=== PATIENT | male | born 1960 | race African-American/Black ===

== ENCOUNTER 2024-07-10 16:36 | Inpatient (IN) | payer MEDICAID, OTHER ==
[~2024-07-10] VITALS: Ht 154.2 cm; Wt 39.0 kg
[~2024-07-10 16:36] MED LIST: LEVO750T68 MT; LINE600T14 MT
[2024-07-10 20:07] LABS: CHLORIDE 101 mEq/L (98-107); POTASSIUM 4.6 mEq/L (3.5-5.1); SODIUM 133 mEq/L (136-145)
[2024-07-10 20:08] LABS: CARBON DIOXIDE 30 mEq/L (21-32)
[2024-07-10 20:09] LABS: INR 1.1; PROTHROMBIN TIME 12.3 sec (9.6-11.0)
[2024-07-10 20:10] LABS: BASOPHILS % 0.2 % (0.0-2.0); EOSINOPHILS % 0.5 % (0.0-5.0); HEMATOCRIT. 27.5 % (42.0-52.0); HEMOGLOBIN. 8.7 g/dL (14.0-18.0); LYMPHOCYTES % 8.8 % (20.0-50.0); MEAN CORPUSCULAR HEMOGLOBIN 23.1 pg (28.0-32.0); MEAN CORPUSCULAR HGB CONC 31.8 g/dL (31.0-37.0); MEAN CORPUSCULAR VOLUME 72.8 fL (80.0-94.0); MEAN PLATELET VOLUME 7.1 fl (7.4-10.4); MONOCYTES % 5.4 % (2.0-8.0); NEUTROPHILS % 85.1 % (40.0-76.0); PLATELET 562 x1000/uL (130-400); RED BLOOD CELL COUNT 3.78 mill/uL (4.7-6.1); RED CELL DISTRIBUTION WIDTH 26.7 % (11.6-14.6); WHITE BLOOD COUNT 24.2 x1000/uL (4.5-11.0)
[2024-07-10 20:13] LABS: CREATININE 0.8 mg/dL (0.6-1.3); GLUCOSE 92 mg/dL (70-105); UREA NITROGEN BLOOD 11 mg/dL (9-23)
[2024-07-10 20:15] LABS: ALANINE AMINOTRANSFERASE < 7 IU/L (10-49); BILIRUBIN DIRECT 0.2 mg/dL (<=3.0); BILIRUBIN TOTAL 0.7 mg/dL (0.1-1.0)
[2024-07-10 20:16] LABS: PROTEIN TOTAL 9.3 g/dL (6.0-8.3)
[2024-07-10 20:25] LABS: DIFFERENTIAL COMMENT 1
[2024-07-10 20:52] LABS: ASPARTATE AMINOTRANSFERASE < 8 IU/L (<34); CALCIUM 13.7 mg/dL (8.7-10.4)
[2024-07-10] MEDS: SODIUM CHLORIDE 0.9% (SEPSIS BOLUS) IV ONE (21:58)
[2024-07-10] MEDS: PIPERACILLIN/TAZO 3.375G/50ML 50 ML IV STA (22:02)
[2024-07-10 23:30] VITALS: BP 139/73; PULSE 79; RESP 19; TEMP 36.696
[2024-07-11] VITALS: BP 100/60; PULSE 87; RESP 18; TEMP 36.55848; O2SAT 100
[2024-07-11] MEDS ORDERED: VANCOMYCIN 1.5GM PMX (XELLIA) 300 ML IV NR (00:45)
[2024-07-11] MEDS: VANCOMYCIN 1.5GM/250ML IV NR (01:15)
[2024-07-11 04:00] VITALS: BP 100/59; PULSE 86; RESP 19; TEMP 36.28068; O2SAT 99
[2024-07-11] MEDS: PIPERACILLIN/TAZO 3.375G/50ML 50 ML IV SCH (05:27)
[2024-07-11] MEDS: ACETAMINOPHEN 650MG/20.3ML UDC PO PRN (06:04)
[2024-07-11 08:00] VITALS: BP 81/47; PULSE 17; RESP 19; TEMP 36.3918; O2SAT 98
[2024-07-11] MEDS: VANCOMYCIN 750MG/150ML (BAXTER) IV SCH ×2 (10:40→20:58)
[2024-07-11 12:00] VITALS: PULSE 85; RESP 18
[2024-07-11] MEDS ORDERED: LIDOCAINE HCL/EPINEPHRINE 1%-EPI 1:100,000 20ML VIAL INFIL NR (15:30)
[2024-07-11 16:00] VITALS: BP 97/57; PULSE 70; RESP 17; TEMP 36.55848; O2SAT 100
[2024-07-11 17:13] LABS: BASOPHILS % 0.2 % (0.0-2.0); EOSINOPHILS % 1.7 % (0.0-5.0); HEMOGLOBIN. 8.2 g/dL (14.0-18.0); LYMPHOCYTES % 7.3 % (20.0-50.0); MEAN CORPUSCULAR HEMOGLOBIN 21.9 pg (28.0-32.0); MEAN CORPUSCULAR HGB CONC 29.2 g/dL (31.0-37.0); MEAN CORPUSCULAR VOLUME 74.8 fL (80.0-94.0); MEAN PLATELET VOLUME 7.1 fl (7.4-10.4); MONOCYTES % 4.8 % (2.0-8.0); PLATELET 515 x1000/uL (130-400); RED BLOOD CELL COUNT 3.74 mill/uL (4.7-6.1); RED CELL DISTRIBUTION WIDTH 25.8 % (11.6-14.6); WHITE BLOOD COUNT 20.8 x1000/uL (4.5-11.0)
[2024-07-11 17:14] LABS: DIFFERENTIAL COMMENT 1
[2024-07-11 17:21] LABS: CHLORIDE 107 mEq/L (98-107); POTASSIUM 4.9 mEq/L (3.5-5.1); SODIUM 137 mEq/L (136-145)
[2024-07-11 17:23] LABS: CALCIUM 12.1 mg/dL (8.7-10.4); CARBON DIOXIDE 27 mEq/L (21-32)
[2024-07-11 17:27] LABS: CREATININE 0.7 mg/dL (0.6-1.3)
[2024-07-11 17:28] LABS: GLUCOSE 89 mg/dL (70-105); UREA NITROGEN BLOOD 11 mg/dL (9-23)
[2024-07-11 20:00] VITALS: BP 100/66; PULSE 70; RESP 20; TEMP 36.6696; O2SAT 98
[2024-07-11] MEDS: SODIUM HYPOCHLORITE 0.125% 473ML SOLUTION TOP SCH (21:05)
[2024-07-12] VITALS: BP 115/66; PULSE 80; RESP 18; TEMP 36.6696; O2SAT 97
[2024-07-12 04:00] VITALS: BP 99/59; PULSE 70; RESP 20; TEMP 37.00296; O2SAT 98
[2024-07-12 09:42] LABS: CHLORIDE 105 mEq/L (98-107); POTASSIUM 4.6 mEq/L (3.5-5.1); SODIUM 135 mEq/L (136-145)
[2024-07-12 09:43] LABS: CALCIUM 12.4 mg/dL (8.7-10.4); CARBON DIOXIDE 27 mEq/L (21-32)
[2024-07-12 09:43] LABS: BASOPHILS % 0.2 % (0.0-2.0); EOSINOPHILS % 0.6 % (0.0-5.0); HEMATOCRIT. 27.7 % (42.0-52.0); HEMOGLOBIN. 8.4 g/dL (14.0-18.0); LYMPHOCYTES % 8.2 % (20.0-50.0); MEAN CORPUSCULAR HEMOGLOBIN 22.8 pg (28.0-32.0); MEAN CORPUSCULAR HGB CONC 30.4 g/dL (31.0-37.0); MEAN CORPUSCULAR VOLUME 75.2 fL (80.0-94.0); MEAN PLATELET VOLUME 7.4 fl (7.4-10.4); MONOCYTES % 4.7 % (2.0-8.0); NEUTROPHILS % 86.3 % (40.0-76.0); PLATELET 524 x1000/uL (130-400); RED BLOOD CELL COUNT 3.69 mill/uL (4.7-6.1); RED CELL DISTRIBUTION WIDTH 25.8 % (11.6-14.6); WHITE BLOOD COUNT 21.5 x1000/uL (4.5-11.0)
[2024-07-12 09:48] LABS: CREATININE 0.7 mg/dL (0.6-1.3); GLUCOSE 73 mg/dL (70-105); UREA NITROGEN BLOOD 12 mg/dL (9-23)
[2024-07-12 10:00] LABS: DIFFERENTIAL COMMENT 1
[2024-07-12 10:01] LABS: ADD RBC MORPHOLOGY YES
[2024-07-12 12:00] VITALS: BP 95/59; PULSE 60; RESP 20; TEMP 36.72516; O2SAT 97
[2024-07-12] MEDS: SODIUM CHLORIDE 0.9% 1,000 ML IV SCH (15:28)
[2024-07-12 16:00] VITALS: BP 94/53; PULSE 76; RESP 20; TEMP 36.72516; O2SAT 9
[2024-07-12] MEDS: PAMIDRONATE DISODIUM IV NR (16:34)
[2024-07-12] MEDS: SODIUM CHLORIDE 0.9% IV NR (16:34)
[2024-07-12 20:00] VITALS: BP 100/72; PULSE 90; RESP 20; TEMP 37.00296; O2SAT 97
[2024-07-12 22:12] LABS: HYPOCHROMASIA 1+; MICROCYTOSIS 1+; PLATELET ESTIMATE INCREASED
[2024-07-13] VITALS: BP 99/62; PULSE 72; RESP 18; TEMP 36.6696; O2SAT 98
[2024-07-13 04:00] VITALS: BP 99/60; PULSE 103; RESP 20; TEMP 37.00296; O2SAT 98
[2024-07-13] MEDS: VANCOMYCIN 500MG PREMIX 100 ML IV SCH (04:27)
[2024-07-13 08:00] VITALS: BP 94/61; PULSE 89; RESP 18; TEMP 36.44736; O2SAT 97
[2024-07-13 12:00] VITALS: BP 89/51; PULSE 100; RESP 17; TEMP 36.50292; O2SAT 98
[2024-07-13] MEDS: MEROPENEM 1G/100ML 100 ML IV SCH (15:40)
[2024-07-13 16:00] VITALS: BP 90/52; PULSE 72; RESP 18; TEMP 36.6696; O2SAT 97
[2024-07-13 20:00] VITALS: BP 92/48; PULSE 101; RESP 18; TEMP 36.55848; O2SAT 97
[2024-07-13] MEDS ORDERED: IOHEXOL-350 100 ML BOTTLE ONE (23:12)
[2024-07-14] VITALS: BP 97/48; PULSE 91; RESP 18; TEMP 36.3918; O2SAT 98
[2024-07-14 04:00] VITALS: BP 141/96; PULSE 91; RESP 18; TEMP 36.50292; O2SAT 97
[2024-07-14] MEDS: MEROPENEM 1GM/50ML DUPLEX 50 ML IV SCH (05:47)
[2024-07-14 08:00] VITALS: BP 97/58; PULSE 92; RESP 16; TEMP 36.6696; O2SAT 97
[2024-07-14] MEDS: VANCOMYCIN 500MG PREMIX 100 ML IV SCH (10:12)
[2024-07-14 12:00] VITALS: BP 99/55; PULSE 95; RESP 16; TEMP 36.33624; O2SAT 98
[2024-07-14 16:00] VITALS: BP 90/56; PULSE 110; RESP 18; TEMP 37.2252; O2SAT 97
[2024-07-14 20:00] VITALS: BP 90/50; PULSE 111; RESP 18; TEMP 36.44736; O2SAT 94
[2024-07-15] VITALS: BP 98/50; PULSE 101; RESP 20; TEMP 36.28068; O2SAT 94
[2024-07-15 04:00] VITALS: BP 90/50; PULSE 95; RESP 17; TEMP 36.00288; O2SAT 93
[2024-07-15 08:00] VITALS: BP 88/49; PULSE 95; RESP 18; TEMP 36.50292; O2SAT 99
[2024-07-15] MEDS: MIDODRINE HCL 5MG TABLET PO SCH (10:02)
[2024-07-15] MEDS: SODIUM CHLORIDE 0.9% 500 ML IV ONE (10:03)
[2024-07-15 12:00] VITALS: BP 91/48; PULSE 89; RESP 18; TEMP 36.55848; O2SAT 98
[2024-07-15] MEDS: HYDROCODONE/ACETAMINOPHEN 5/325MG TABLET PO PRN (12:49)
[2024-07-15] MEDS ORDERED: NALOXONE HCL 0.4MG/ML VIAL IV PRN (15:30)
[2024-07-15 16:00] VITALS: BP 90/50; PULSE 74; RESP 16; TEMP 36.05844; O2SAT 97
[2024-07-15 20:00] VITALS: BP 86/48; PULSE 84; RESP 18; TEMP 37.05852; O2SAT 97
[2024-07-16] VITALS: BP 90/51; PULSE 91; RESP 18; TEMP 36.6696; O2SAT 97
[2024-07-16 04:00] VITALS: BP 86/49; PULSE 93; RESP 18; TEMP 36.9474; O2SAT 97
[2024-07-16 07:38] LABS: CARBON DIOXIDE 22 mEq/L (21-32); CHLORIDE 105 mEq/L (98-107); SODIUM 132 mEq/L (136-145)
[2024-07-16 07:39] LABS: CALCIUM 8.7 mg/dL (8.7-10.4)
[2024-07-16 07:44] LABS: CREATININE 0.6 mg/dL (0.6-1.3); GLUCOSE 88 mg/dL (70-105); UREA NITROGEN BLOOD 12 mg/dL (9-23)
[2024-07-16 08:00] VITALS: BP 90/50; PULSE 91; RESP 19; TEMP 36.72516; O2SAT 97
[2024-07-16 12:00] VITALS: BP 93/45; PULSE 89; RESP 18; TEMP 36.44736; O2SAT 97
[2024-07-16] MEDS ORDERED: ONDANSETRON HCL 4MG/2ML INJ IV PRN (15:50)
[2024-07-16 16:00] VITALS: BP 94/48; PULSE 94; RESP 18; TEMP 37.05852; O2SAT 97
[2024-07-16 20:00] VITALS: BP 82/44; PULSE 81; RESP 18; TEMP 36.22512; O2SAT 97
[2024-07-17 04:00] VITALS: BP 94/53; PULSE 94; RESP 18; TEMP 36.114; O2SAT 98
[2024-07-17 08:00] VITALS: BP 91/44; PULSE 88; RESP 20; TEMP 36.28068; O2SAT 98
[2024-07-17 12:00] VITALS: BP 95/49; PULSE 94; RESP 20; TEMP 36.16956; O2SAT 98
[2024-07-17 16:00] VITALS: BP 99/55; PULSE 89; RESP 20; TEMP 36.22512; O2SAT 100
[2024-07-17 20:00] VITALS: BP 94/51; PULSE 89; RESP 17; TEMP 36.28068; O2SAT 95
[2024-07-18] VITALS: BP 119/53; PULSE 95; RESP 16; TEMP 36.05844; O2SAT 96
[2024-07-18 04:00] VITALS: BP 98/56; PULSE 96; RESP 15; TEMP 36.61404; O2SAT 98
[2024-07-18 08:00] VITALS: BP 100/46; PULSE 99; RESP 20; TEMP 35.8362; O2SAT 100
[2024-07-18] MEDS: MULTIVITAMINS,THER W-MINERALS TABLET PO SCH (08:30)
[2024-07-18] MEDS ORDERED: MULTIVITAMINS,THER W-MINERALS TABLET PO SCH (09:00)
[2024-07-18] MEDS ORDERED: MIDO10TA3 MT (10:12)
[2024-07-18 12:00] VITALS: BP 101/55; PULSE 93; RESP 20; TEMP 36.00288; O2SAT 100
[2024-07-18 15:54] VITALS: BP 101/55; PULSE 93; TEMP 96.8; O2SAT 100
[2024-07-18 16:00] VITALS: BP 93/42; PULSE 97; RESP 20; TEMP 37.89192; O2SAT 100
== END 2024-07-18 18:30 | disposition home health service (06) | DRG 720 ==
LOC: ER 16:36 → 8WST 21:13 → EDBEDREQ 21:15 → 6WST 07-15 15:11 → 4WST 07-18 02:20
PROVIDERS: ADMIT Internal Medicine; ATTEND Internal Medicine
DX: A41.9 Sepsis, unspecified organism (principal); L89.159 Pressure ulcer of sacral region, unspecified stage; E87.1 Hypo-osmolality and hyponatremia; M46.28 Osteomyelitis of vertebra, sacral and sacrococcygeal region; D64.9 Anemia, unspecified; S31.819A Unspecified open wound of right buttock, initial encounter; J45.909 Unspecified asthma, uncomplicated; L73.2 Hidradenitis suppurativa; B96.5 Pseudomonas (aeruginosa) (mallei) (pseudomallei) as the cause of diseases classified elsewhere; D50.9 Iron deficiency anemia, unspecified; B96.20 Unspecified Escherichia coli [E. coli] as the cause of diseases classified elsewhere; X58.XXXA Exposure to other specified factors, initial encounter; R63.4 Abnormal weight loss; D75.839 Thrombocytosis, unspecified; E83.52 Hypercalcemia; Z91.199 Patient's noncompliance with other medical treatment and regimen due to unspecified reason; Z59.01 Sheltered homelessness; Z68.1 Body mass index [BMI] 19.9 or less, adult; Y93.89 Activity, other specified; Y92.89 Other specified places as the place of occurrence of the external cause; Y99.8 Other external cause status
CPT/HCPCS: 36415; 71260; 74177; 80048; 80076; 80202; 83605; 83970; 84145; 85025; 99291; A4606; C1893; J2004; J2185; J2430; J2543; J3370; J7030; J7040; Q9967

== ENCOUNTER 2024-09-18 13:30 | Inpatient (IN) | payer MEDICAID, OTHER ==
[2024-09-18] VITALS (14 sets, daily range): BP systolic 111–130; BP diastolic 80–96; PULSE 80–96; RESP 16–22; TEMP 34.9; O2SAT 99–100
[~2024-09-18] VITALS: Ht 175.3 cm; Wt 56.9 kg
[~2024-09-18 13:30] MED LIST changes: +CLIN-194 MT; +DOXY150T8 MT; +LEVO-65 MT; -LEVO750T68 MT; -LINE600T14 MT; +MAGN200T5 MT
[2024-09-18] MEDS: VANCOMYCIN 1G PREMIX 200 ML IV ONE (14:30)
[2024-09-18] MEDS: NOREPINEPHRINE 8MG/250ML PMX 250 ML IV STA (14:45)
[2024-09-18] MEDS: PIPERACILLIN/TAZO 3.375G/50ML 50 ML IV ONE (14:49)
[2024-09-18 14:54] LABS: BASOPHILS % 0.2 % (0.0-2.0); DIFFERENTIAL COMMENT 0; EOSINOPHILS % 0.2 % (0.0-5.0); HEMATOCRIT. 21.4 % (42.0-52.0); LYMPHOCYTES % 12.9 % (20.0-50.0); MEAN CORPUSCULAR HEMOGLOBIN 23.3 pg (28.0-32.0); MEAN CORPUSCULAR HGB CONC 28.2 g/dL (31.0-37.0); MEAN CORPUSCULAR VOLUME 82.4 fL (80.0-94.0); MEAN PLATELET VOLUME 7.2 fl (7.4-10.4); NEUTROPHILS % 84.7 % (40.0-76.0); PLATELET 202 x1000/uL (130-400); RED CELL DISTRIBUTION WIDTH 19.4 % (11.6-14.6)
[2024-09-18] MEDS: SODIUM CHLORIDE 0.9% (SEPSIS BOLUS) IV ONE (14:54)
[2024-09-18 15:02] LABS: BG BASE EXCESS -2.4 mmol/L (-2.0-3.0); BG CARBOXYHEMOGLOBIN 0.8 % (0.5-1.5); BG DEOXYHEMOGLOBIN 0.3 % (0.0-5.0); BG FRACTION INSPIRED OXYGEN 100; BG HCO3 ACT 22.8 mmol/L (21.0-28.0); BG METHEMOGLOBIN 0.2 % (0.5-1.5); BG OXYGEN SATURATION 99.7 % (94.0-98.0); BG OXYHEMOGLOBIN 98.7 % (94.0-98.0); BG PH 7.363 (7.350-7.450); BG PO2 551.2 mmHg (83.0-108.0); BG SAMPLE SITE RIGHT RADIAL; BG TOTAL HEMOGLOBIN 7.3 g/dL (13.5-17.5); BG VENT MODE VENT - AC
[2024-09-18 15:11] LABS: INR 1.6; PROTHROMBIN TIME 16.8 sec (9.6-11.0)
[2024-09-18 15:15] LABS: HEMOGLOBIN. 6.1 g/dL (14.0-18.0)
[2024-09-18 15:17] LABS: CHLORIDE 107 mEq/L (98-107); POTASSIUM 3.6 mEq/L (3.5-5.1); SODIUM 145 mEq/L (136-145)
[2024-09-18 15:18] LABS: CARBON DIOXIDE 21 mEq/L (21-32)
[2024-09-18 15:24] LABS: TROPONIN I HIGH SENSITIVITY 29 ng/L (3.0-53); UREA NITROGEN BLOOD 38 mg/dL (9-23)
[2024-09-18 15:25] LABS: ALANINE AMINOTRANSFERASE 10 IU/L (10-49); ALBUMIN 1.8 g/dL (3.2-4.8); ASPARTATE AMINOTRANSFERASE 23 IU/L (<34)
[2024-09-18 15:26] LABS: BILIRUBIN DIRECT 0.2 mg/dL (<=3.0); BILIRUBIN TOTAL 0.5 mg/dL (0.1-1.0); PROTEIN TOTAL 6.1 g/dL (6.0-8.3)
[2024-09-18 15:27] LABS: GLUCOSE 356 mg/dL (70-105)
[2024-09-18 15:28] LABS: ETHANOL BLOOD < 10 mg/dL (<10)
[2024-09-18 15:30] LABS: LACTIC ACID 8.6 mmol/L (0.4-2.0)
[2024-09-18] MEDS: FENTANYL 2500MCG/250ML PMX 250 ML IV ONE ×2 (16:33→22:12)
[2024-09-18] MEDS: PROPOFOL 10MG/ML 100ML 100 ML IV SCH (16:45)
[2024-09-18 16:47] LABS: INFLUENZA TYPE A Presumptive Negative (Pres. Neg.); INFLUENZA TYPE B Presumptive Negative (Pres. Neg.)
[2024-09-18 18:08] LABS: CLARITY URINE CLEAR (CLEAR); COLOR URINE YELLOW (YELLOW); GLUCOSE URINE NEGATIVE (NEGATIVE); KETONES URINE NEGATIVE (NEGATIVE); LEUKOCYTE ESTERASE URINE TRACE (NEGATIVE); NITRITE URINE NEGATIVE (NEGATIVE); OCCULT BLOOD URINE 2+ (NEGATIVE); PROTEIN URINE 1+ (NEGATIVE); SPECIFIC GRAVITY URINE 1.016 (1.005-1.030); UROBILINOGEN URINE 0.2 E.U./dL (0.2-1.0)
[2024-09-18 19:19] LABS: BACTERIA URINE 1+; SQUAMOUS EPITHELIAL CELL URINE FEW /lpf (RARE/1+); WBC URINE 0-2 /hpf (0-2)
[2024-09-18] MEDS ORDERED: NOREPINEPHRINE 32 MG in DEXT 5% WATER 218 ML IV PRN (19:50)
[2024-09-18] MEDS: NOREPINEPHRINE 32 MG in DEXT 5% WATER 218 ML IV PRN (20:05)
[2024-09-18] MEDS ORDERED: IPRATROPIUM/ALBUTEROL 0.5-3(2.5)MG/3ML NEB HHN PRN (21:00)
[2024-09-18] MEDS: PIPERACILLIN/TAZO 3.375G/50ML 50 ML IV SCH (21:34)
[2024-09-19] VITALS (104 sets, daily range): BP systolic 66–121; BP diastolic 50–89; PULSE 67–116; RESP 12–28; TEMP 35.3–36.1; O2SAT 0–100
[2024-09-19 00:42] LABS: HEMATOCRIT 35.1 % (42.0-52.0); HEMOGLOBIN 10.4 g/dL (14.0-18.0)
[2024-09-19] MEDS: SODIUM CHLORIDE 0.9% 1,000 ML IV SCH (01:39)
[2024-09-19 05:05] LABS: HEMATOCRIT. 32.8 % (42.0-52.0); MEAN CORPUSCULAR HEMOGLOBIN 24.9 pg (28.0-32.0); MEAN CORPUSCULAR HGB CONC 30.5 g/dL (31.0-37.0); MEAN CORPUSCULAR VOLUME 81.7 fL (80.0-94.0); MEAN PLATELET VOLUME 7.3 fl (7.4-10.4); PLATELET 237 x1000/uL (130-400); RED BLOOD CELL COUNT 4.01 mill/uL (4.7-6.1); RED CELL DISTRIBUTION WIDTH 18.3 % (11.6-14.6); WHITE BLOOD COUNT 31.4 x1000/uL (4.5-11.0)
[2024-09-19] MEDS ORDERED: PROPOFOL 10MG/ML 100ML 100 ML IV PRN (05:30)
[2024-09-19] MEDS: NOREPINEPHRINE 32 MG in DEXT 5% WATER 218 ML IV PRN (06:01)
[2024-09-19 06:19] LABS: DIFFERENTIAL COMMENT 1
[2024-09-19] MEDS ORDERED: ACETAMINOPHEN 325MG TABLET PO PRN (07:15)
[2024-09-19] MEDS ORDERED: CLONIDINE 0.1MG TABLET PO PRN (07:15)
[2024-09-19] MEDS ORDERED: ONDANSETRON HCL 4MG/2ML INJ IV PRN (07:15)
[2024-09-19] MEDS ORDERED: DOCUSATE SODIUM 100MG CAPSULE PO PRN (07:15)
[2024-09-19] MEDS: PHYTONADIONE 10MG/ML INJ SUBCUT NR (08:27)
[2024-09-19] MEDS: PANTOPRAZOLE SODIUM 40 MG/VIAL IV SCH (08:27)
[2024-09-19] MEDS: SODIUM CHLORIDE 0.45% 1,000 ML IV SCH (08:34)
[2024-09-19 08:47] LABS: *AMPHETAMINES SCREEN URINE NEGATIVE (NEGATIVE); *BARBITURATES SCREEN URINE NEGATIVE (NEGATIVE); *BENZODIAZEPINES SCREEN URINE NEGATIVE (NEGATIVE); *COCAINE SCREEN URINE NEGATIVE (NEGATIVE); CANNABINOID URINE SCREEN NEGATIVE (NEGATIVE); ECSTASY MDMA SCREEN URINE NEGATIVE (NEGATIVE); METHADONE URINE SCREEN NEGATIVE (NEGATIVE); OPIATES URINE SCREEN NEGATIVE (NEGATIVE); PHENCYCLIDINE URINE SCREEN NEGATIVE (NEGATIVE)
[2024-09-19 09:33] LABS: BG BASE EXCESS -4.6 mmol/L (-2.0-3.0); BG CARBOXYHEMOGLOBIN 1.2 % (0.5-1.5); BG DEOXYHEMOGLOBIN 0.6 % (0.0-5.0); BG FRACTION INSPIRED OXYGEN 40; BG METHEMOGLOBIN 0.3 % (0.5-1.5); BG OXYGEN SATURATION 99.4 % (94.0-98.0); BG OXYHEMOGLOBIN 97.9 % (94.0-98.0); BG PCO2 40.3 mmHg (35.0-48.0); BG PH 7.334 (7.350-7.450); BG PO2 190.2 mmHg (83.0-108.0); BG SAMPLE SITE RIGHT BRACHIAL; BG TOTAL HEMOGLOBIN 10.6 g/dL (13.5-17.5); BG VENT MODE VENT - AC
[2024-09-19 09:49] LABS: ANISOCYTOSIS 1+; PLATELET ESTIMATE NORMAL
[2024-09-19 10:50] LABS: POTASSIUM 3.9 mEq/L (3.5-5.1)
[2024-09-19 11:00] LABS: T4 FREE 0.49 ng/dL (0.89-1.76)
[2024-09-19 11:16] LABS: CALCIUM 13.4 mg/dL (8.7-10.4)
[2024-09-19] MEDS: VANCOMYCIN 750MG/150ML (BAXTER) IV SCH (11:25)
[2024-09-19] MEDS ORDERED: LIDOCAINE HCL 1% 10 MG/ML 5ML VIAL IJ NR (11:30)
[2024-09-19] MEDS ORDERED: MEROPENEM 1G/100ML 100 ML IV SCH (11:45)
[2024-09-19] MEDS: BLOOD SUGAR DIAGNOSTIC STRIP TEST SCH (11:48)
[2024-09-19] MEDS: INSULIN LISPRO 100 UNITS/ML SUBCUT SCH (11:49)
[2024-09-19] MEDS: MEROPENEM 500 MG in DEXTROSE 5% WATER 50 ML IV SCH (13:50)
[2024-09-19] MEDS: CHLORHEXIDINE GLUCONATE 4% EXTERNAL USE TOP SCH (16:23)
[2024-09-19] MEDS: DEXTROSE 50% WATER 50ML SYRINGE IV PRN (18:49)
[2024-09-19] MEDS ORDERED: PIPERACILLIN/TAZO 3.375G/50ML 50 ML IV SCH (21:00)
[2024-09-20] VITALS (101 sets, daily range): BP systolic 83–127; BP diastolic 54–89; PULSE 70–99; RESP 9–37; TEMP 36.4; O2SAT 92–100
[2024-09-20 05:19] LABS: HEMATOCRIT. 35.2 % (42.0-52.0); HEMOGLOBIN. 10.5 g/dL (14.0-18.0); MEAN CORPUSCULAR HEMOGLOBIN 24.7 pg (28.0-32.0); MEAN CORPUSCULAR HGB CONC 29.8 g/dL (31.0-37.0); MEAN PLATELET VOLUME 7.6 fl (7.4-10.4); PLATELET 156 x1000/uL (130-400); RED BLOOD CELL COUNT 4.24 mill/uL (4.7-6.1); WHITE BLOOD COUNT 26.8 x1000/uL (4.5-11.0)
[2024-09-20 05:23] LABS: DIFFERENTIAL COMMENT 1
[2024-09-20 05:25] LABS: INR 1.2
[2024-09-20 05:37] LABS: CHLORIDE 109 mEq/L (98-107); SODIUM 141 mEq/L (136-145)
[2024-09-20 05:38] LABS: CARBON DIOXIDE 21 mEq/L (21-32)
[2024-09-20 05:42] LABS: IRON 61 ug/dL (65-175)
[2024-09-20 05:43] LABS: CREATININE 1.7 mg/dL (0.6-1.3); GLUCOSE 68 mg/dL (70-105); TRIGLYCERIDE 52 mg/dL (0-150); UREA NITROGEN BLOOD 43 mg/dL (9-23)
[2024-09-20 05:45] LABS: ALANINE AMINOTRANSFERASE 19 IU/L (10-49); ASPARTATE AMINOTRANSFERASE 44 IU/L (<34); BILIRUBIN DIRECT 0.4 mg/dL (<=3.0); BILIRUBIN TOTAL 0.9 mg/dL (0.1-1.0); PHOSPHORUS 6.1 mg/dL (2.5-4.9); PROTEIN TOTAL 6.9 g/dL (6.0-8.3); TOTAL IRON BINDING CAPACITY 382 ug/dl (250-425)
[2024-09-20 05:49] LABS: ANISOCYTOSIS 1+; HYPOCHROMASIA 1+; PLATELET ESTIMATE NORMAL
[2024-09-20 06:14] LABS: CALCIUM 13.2 mg/dL (8.7-10.4)
[2024-09-20 07:06] LABS: FOLIC ACID (FOLATE) SERUM > 20.00 ng/mL (>5.38); VITAMIN B12 SERUM 1842 pg/mL (211-911)
[2024-09-20 07:08] LABS: FERRITIN 522 ng/mL (22-322)
[2024-09-20] MEDS ORDERED: SEVELAMER CARBONATE 800 MG TABLET PO STA (09:15)
[2024-09-20 10:08] LABS: BG BASE EXCESS -4.2 mmol/L (-2.0-3.0); BG CARBOXYHEMOGLOBIN 0.6 % (0.5-1.5); BG DEOXYHEMOGLOBIN 0.8 % (0.0-5.0); BG FRACTION INSPIRED OXYGEN 30; BG HCO3 ACT 19.7 mmol/L (21.0-28.0); BG METHEMOGLOBIN 0.3 % (0.5-1.5); BG OXYGEN SATURATION 99.2 % (94.0-98.0); BG OXYHEMOGLOBIN 98.3 % (94.0-98.0); BG PH 7.408 (7.350-7.450); BG PO2 152.4 mmHg (83.0-108.0); BG SAMPLE SITE RIGHT RADIAL; BG VENT MODE VENT - AC
[2024-09-20] MEDS: VANCOMYCIN 500MG PREMIX 100 ML IV SCH (18:26)
[2024-09-20] MEDS: FENTANYL 2500MCG/250ML PMX 250 ML IV PRN (18:27)
[2024-09-20] MEDS: MEROPENEM 1GM/50ML DUPLEX 50 ML IV SCH (20:20)
[2024-09-21] VITALS (105 sets, daily range): BP systolic 68–178; BP diastolic 41–100; PULSE 64–108; RESP 10–30; TEMP 35.8–36.8; O2SAT 94–100
[2024-09-21 05:48] LABS: BASOPHILS % 0.1 % (0.0-2.0); DIFFERENTIAL COMMENT 0; HEMATOCRIT. 35.3 % (42.0-52.0); HEMOGLOBIN. 10.7 g/dL (14.0-18.0); MEAN CORPUSCULAR HGB CONC 30.4 g/dL (31.0-37.0); MEAN CORPUSCULAR VOLUME 82.4 fL (80.0-94.0); MEAN PLATELET VOLUME 7.8 fl (7.4-10.4); MONOCYTES % 2.1 % (2.0-8.0); NEUTROPHILS % 88.8 % (40.0-76.0); PLATELET 137 x1000/uL (130-400); RED BLOOD CELL COUNT 4.29 mill/uL (4.7-6.1); RED CELL DISTRIBUTION WIDTH 18.6 % (11.6-14.6); WHITE BLOOD COUNT 21.3 x1000/uL (4.5-11.0)
[2024-09-21 06:06] LABS: POTASSIUM 3.8 mEq/L (3.5-5.1)
[2024-09-21 06:12] LABS: CREATININE 1.8 mg/dL (0.6-1.3)
[2024-09-21 06:27] LABS: CALCIUM 13.1 mg/dL (8.7-10.4)
[2024-09-21] MEDS: DEXT 5%/0.45% NACL 1000ML 1,000 ML IV SCH (09:56)
[2024-09-21 10:10] LABS: BG BASE EXCESS -8.4 mmol/L (-2.0-3.0); BG CARBOXYHEMOGLOBIN 0.9 % (0.5-1.5); BG DEOXYHEMOGLOBIN 2.1 % (0.0-5.0); BG FRACTION INSPIRED OXYGEN 30; BG HCO3 ACT 16.9 mmol/L (21.0-28.0); BG METHEMOGLOBIN 0.3 % (0.5-1.5); BG OXYGEN SATURATION 97.9 % (94.0-98.0); BG OXYHEMOGLOBIN 96.7 % (94.0-98.0); BG PCO2 33.4 mmHg (35.0-48.0); BG PH 7.321 (7.350-7.450); BG PO2 113.8 mmHg (83.0-108.0); BG SAMPLE SITE RIGHT BRACHIAL; BG TOTAL HEMOGLOBIN 9.2 g/dL (13.5-17.5); BG VENT MODE VENT - AC
[2024-09-21] MEDS: ENOXAPARIN 30MG/0.3ML SYR SUBCUT SCH (12:18)
[2024-09-21] MEDS: METOCLOPRAMIDE HCL 10MG/2ML VIAL IV PRN (12:18)
[2024-09-21] MEDS: DOCUSATE SODIUM SUGAR FREE 100MG/10ML UDC NG PRN (17:29)
[2024-09-21] MEDS: MEROPENEM 500MG/50ML 50 ML IV SCH (21:55)
[2024-09-22] VITALS (110 sets, daily range): BP systolic 64–133; BP diastolic 31–108; PULSE 57–101; RESP 19–36; TEMP 36.1–36.8; O2SAT 93–100
[2024-09-22 06:03] LABS: HEMATOCRIT. 32.2 % (42.0-52.0); HEMOGLOBIN. 9.4 g/dL (14.0-18.0); MEAN CORPUSCULAR HEMOGLOBIN 24.7 pg (28.0-32.0); MEAN CORPUSCULAR HGB CONC 29.1 g/dL (31.0-37.0); MEAN CORPUSCULAR VOLUME 84.9 fL (80.0-94.0); MEAN PLATELET VOLUME 7.4 fl (7.4-10.4); PLATELET 119 x1000/uL (130-400); RED CELL DISTRIBUTION WIDTH 19.2 % (11.6-14.6)
[2024-09-22 06:58] LABS: POTASSIUM 3.9 mEq/L (3.5-5.1)
[2024-09-22 06:59] LABS: CALCIUM 11.1 mg/dL (8.7-10.4)
[2024-09-22 07:04] LABS: CREATININE 1.7 mg/dL (0.6-1.3)
[2024-09-22 07:17] LABS: DIFFERENTIAL COMMENT 1
[2024-09-22] MEDS: METOCLOPRAMIDE HCL 10MG/2ML VIAL IV SCH (14:33)
[2024-09-22 14:35] LABS: BG BASE EXCESS -7.3 mmol/L (-2.0-3.0); BG CARBOXYHEMOGLOBIN 0.6 % (0.5-1.5); BG DEOXYHEMOGLOBIN 1.9 % (0.0-5.0); BG FRACTION INSPIRED OXYGEN 30; BG METHEMOGLOBIN 0.3 % (0.5-1.5); BG OXYGEN SATURATION 98.1 % (94.0-98.0); BG OXYHEMOGLOBIN 97.2 % (94.0-98.0); BG PCO2 30.3 mmHg (35.0-48.0); BG PH 7.367 (7.350-7.450); BG PO2 112.5 mmHg (83.0-108.0); BG SAMPLE SITE RIGHT RADIAL; BG TOTAL HEMOGLOBIN 9.9 g/dL (13.5-17.5); BG TOTAL RESPIRATORY RATE 26 b/min; BG VENT MODE VENT - SIMV
[2024-09-22] MEDS: LACTULOSE 20G/30ML UDC NG NR (17:17)
[2024-09-22] MEDS: SENNOSIDES 8.6MG TABLET NG SCH (17:55)
[2024-09-22 19:48] LABS: ANISOCYTOSIS 1+; HYPOCHROMASIA 1+; PLATELET ESTIMATE DECREASED
[2024-09-22] MEDS: DOCUSATE SODIUM SUGAR FREE 100MG/10ML UDC NG SCH (20:18)
[2024-09-23] VITALS (100 sets, daily range): BP systolic 75–114; BP diastolic 47–85; PULSE 45–79; RESP 15–34; TEMP 35.6–36.8; O2SAT 86–100
[2024-09-23] MEDS: MORPHINE SULFATE 2 MG/ML INJ (NOT FOR IM USE) IV PRN (01:06)
[2024-09-23 05:26] LABS: HEMATOCRIT 29.8 % (42.0-52.0); HEMOGLOBIN 9.3 g/dL (14.0-18.0); MEAN CORPUSCULAR HEMOGLOBIN 26.5 pg (28.0-32.0); MEAN CORPUSCULAR HGB CONC 31.2 g/dL (31.0-37.0); PLATELET 79 x1000/uL (130-400); RED BLOOD CELL COUNT 3.51 mill/uL (4.7-6.1); RED CELL DISTRIBUTION WIDTH 18.5 % (11.6-14.6); WHITE BLOOD COUNT 25.5 x1000/uL (4.5-11.0)
[2024-09-23 05:52] LABS: CHLORIDE 106 mEq/L (98-107); SODIUM 132 mEq/L (136-145)
[2024-09-23 05:53] LABS: CALCIUM 9.3 mg/dL (8.7-10.4); CARBON DIOXIDE 16 mEq/L (21-32)
[2024-09-23 05:58] LABS: CREATININE 1.1 mg/dL (0.6-1.3); GLUCOSE 143 mg/dL (70-105); UREA NITROGEN BLOOD 32 mg/dL (9-23)
[2024-09-23 06:37] LABS: POTASSIUM 2.8 mEq/L (3.5-5.1)
[2024-09-23] MEDS ORDERED: POTASSIUM CHLORIDE 60 MEQ in DEXT 5% WATER 220 ML IV ONE (07:00)
[2024-09-23] MEDS: KCL 20MEQ/100ML X 3 FOR TOTAL KCL 60MEQ/300ML IV SCH (08:57)
[2024-09-23] MEDS: CITRIC ACID/SODIUM CITRATE SOLN 30ML UDC PO SCH (08:57)
[2024-09-23 09:39] LABS: BG BASE EXCESS -7.9 mmol/L (-2.0-3.0); BG DEOXYHEMOGLOBIN 1.4 % (0.0-5.0); BG FRACTION INSPIRED OXYGEN 30; BG HCO3 ACT 16.4 mmol/L (21.0-28.0); BG METHEMOGLOBIN 0.3 % (0.5-1.5); BG OXYGEN SATURATION 98.6 % (94.0-98.0); BG OXYHEMOGLOBIN 97.3 % (94.0-98.0); BG PCO2 29.6 mmHg (35.0-48.0); BG PH 7.362 (7.350-7.450); BG PO2 125.9 mmHg (83.0-108.0); BG SAMPLE SITE LEFT RADIAL; BG TOTAL HEMOGLOBIN 10.2 g/dL (13.5-17.5); BG TOTAL RESPIRATORY RATE 25 b/min; BG VENT MODE VENT - SIMV
[2024-09-23] MEDS: MIDODRINE HCL 5MG TABLET PO SCH (10:16)
[2024-09-23] MEDS: LIDOCAINE HCL 1% 10 MG/ML 10ML VIAL ONE (12:54)
[2024-09-23 13:53] LABS: BG CARBOXYHEMOGLOBIN 0.5 % (0.5-1.5); BG DEOXYHEMOGLOBIN 1.6 % (0.0-5.0); BG FRACTION INSPIRED OXYGEN 30; BG HCO3 ACT 17.2 mmol/L (21.0-28.0); BG METHEMOGLOBIN 0.3 % (0.5-1.5); BG OXYGEN SATURATION 98.4 % (94.0-98.0); BG OXYHEMOGLOBIN 97.6 % (94.0-98.0); BG PCO2 30.2 mmHg (35.0-48.0); BG PH 7.374 (7.350-7.450); BG PO2 128.5 mmHg (83.0-108.0); BG SAMPLE SITE LEFT RADIAL; BG TOTAL HEMOGLOBIN 10.1 g/dL (13.5-17.5); BG VENT MODE VENT - CPAP
[2024-09-23] MEDS: POTASSIUM CHLORIDE 20MEQ/PACKET PO NR (14:08)
[2024-09-23] MEDS: MIDODRINE HCL 5MG TABLET PO NR (14:08)
[2024-09-23] MEDS: DEXT 5%/0.9% NACL 1,000 ML IV SCH (14:51)
[2024-09-23] MEDS: FERROUS SULFATE 300MG/5ML UDC NG SCH (15:50)
[2024-09-23] MEDS ORDERED: MIDODRINE HCL 5MG TABLET PO SCH (17:00)
[2024-09-23] MEDS: VANCOMYCIN 750MG PREMIX 150 ML IV SCH (18:36)
[2024-09-23] MEDS: MEROPENEM 1GM/50ML DUPLEX 50 ML IV SCH (21:29)
[2024-09-24] VITALS (101 sets, daily range): BP systolic 50–119; BP diastolic 17–91; PULSE 45–114; RESP 16–38; TEMP 31.1–37; O2SAT 88–99
[2024-09-24 06:40] LABS: HEMATOCRIT. 35.1 % (42.0-52.0); HEMOGLOBIN. 10.6 g/dL (14.0-18.0); MEAN CORPUSCULAR HEMOGLOBIN 25.6 pg (28.0-32.0); MEAN CORPUSCULAR HGB CONC 30.2 g/dL (31.0-37.0); MEAN CORPUSCULAR VOLUME 84.6 fL (80.0-94.0); MEAN PLATELET VOLUME 8.5 fl (7.4-10.4); PLATELET 56 x1000/uL (130-400); RED BLOOD CELL COUNT 4.14 mill/uL (4.7-6.1); RED CELL DISTRIBUTION WIDTH 18.8 % (11.6-14.6); WHITE BLOOD COUNT 14.6 x1000/uL (4.5-11.0)
[2024-09-24 06:51] LABS: CARBON DIOXIDE 20 mEq/L (21-32); CHLORIDE 109 mEq/L (98-107); POTASSIUM 4.9 mEq/L (3.5-5.1); SODIUM 137 mEq/L (136-145)
[2024-09-24 06:52] LABS: CALCIUM 9.1 mg/dL (8.7-10.4)
[2024-09-24 06:54] LABS: DIFFERENTIAL COMMENT 1
[2024-09-24 06:57] LABS: CREATININE 0.9 mg/dL (0.6-1.3); GLUCOSE 119 mg/dL (70-105); UREA NITROGEN BLOOD 33 mg/dL (9-23)
[2024-09-24 07:01] LABS: PREALBUMIN < 5.0 mg/dl (10.0-40.0)
[2024-09-24] MEDS: LIDOCAINE HCL 1% 10 MG/ML 10ML VIAL ONE (09:04)
[2024-09-24 09:10] LABS: ANISOCYTOSIS 1+; PLATELET ESTIMATE MARKEDLY DECREASED
[2024-09-24] MEDS: MIDODRINE HCL 5MG TABLET PO SCH (10:10)
[2024-09-24] MEDS ORDERED: NALOXONE HCL 0.4MG/ML VIAL IV PRN (11:00)
[2024-09-24] MEDS: ACETAMINOPHEN 325MG TABLET PO PRN (16:15)
[2024-09-24] MEDS: PHENYLEPHRINE 50MG/250ML PMX 250 ML IV PRN (20:23)
[2024-09-24 20:54] LABS: BG CARBOXYHEMOGLOBIN 0.8 % (0.5-1.5); BG FRACTION INSPIRED OXYGEN 44; BG HCO3 ACT 15.5 mmol/L (21.0-28.0); BG METHEMOGLOBIN 0.3 % (0.5-1.5); BG OXYGEN SATURATION 90.9 % (94.0-98.0); BG OXYHEMOGLOBIN 89.9 % (94.0-98.0); BG PCO2 32.9 mmHg (35.0-48.0); BG PH 7.292 (7.350-7.450); BG SAMPLE SITE RIGHT RADIAL; BG TOTAL HEMOGLOBIN 9.8 g/dL (13.5-17.5); BG VENT MODE NASAL CANNULA
[2024-09-24] MEDS: VASOPRESSIN 20 UNIT in SODIUM CHLORIDE 0.9% 99 ML IV PRN (21:00)
[2024-09-25] VITALS (112 sets, daily range): BP systolic 38–121; BP diastolic 11–92; PULSE 56–108; RESP 15–31; TEMP 35.9–36.7; O2SAT 97–100
[2024-09-25] MEDS: PHENYLEPHRINE 100 MG in DEXT 5% WATER 240 ML IV PRN (00:19)
[2024-09-25 06:07] LABS: CHLORIDE 108 mEq/L (98-107); POTASSIUM 4.5 mEq/L (3.5-5.1); SODIUM 136 mEq/L (136-145)
[2024-09-25 06:08] LABS: CARBON DIOXIDE 20 mEq/L (21-32)
[2024-09-25 06:09] LABS: CALCIUM 7.7 mg/dL (8.7-10.4)
[2024-09-25 06:13] LABS: CREATININE 1.1 mg/dL (0.6-1.3); GLUCOSE 119 mg/dL (70-105); UREA NITROGEN BLOOD 41 mg/dL (9-23)
[2024-09-25 06:22] LABS: HEMOGLOBIN. 9.2 g/dL (14.0-18.0); MEAN CORPUSCULAR HEMOGLOBIN 24.9 pg (28.0-32.0); MEAN CORPUSCULAR HGB CONC 30.7 g/dL (31.0-37.0); MEAN CORPUSCULAR VOLUME 80.9 fL (80.0-94.0); MEAN PLATELET VOLUME 8.3 fl (7.4-10.4); PLATELET 53 x1000/uL (130-400); RED BLOOD CELL COUNT 3.71 mill/uL (4.7-6.1); RED CELL DISTRIBUTION WIDTH 18.9 % (11.6-14.6); WHITE BLOOD COUNT 23.9 x1000/uL (4.5-11.0)
[2024-09-25] MEDS ORDERED: ETOMIDATE 2MG/ML 10ML VIAL IV ONE (07:10)
[2024-09-25 07:26] LABS: DIFFERENTIAL COMMENT 1
[2024-09-25] MEDS: SODIUM BICARBONATE 100 MEQ in DEXTROSE 5% WATER 900 ML IV SCH (08:14)
[2024-09-25 08:29] LABS: BG BASE EXCESS -10.1 mmol/L (-2.0-3.0); BG CARBOXYHEMOGLOBIN 0.4 % (0.5-1.5); BG DEOXYHEMOGLOBIN 0.3 % (0.0-5.0); BG FRACTION INSPIRED OXYGEN 100; BG HCO3 ACT 16.9 mmol/L (21.0-28.0); BG METHEMOGLOBIN 0.3 % (0.5-1.5); BG OXYGEN SATURATION 99.7 % (94.0-98.0); BG PCO2 41.9 mmHg (35.0-48.0); BG PH 7.223 (7.350-7.450); BG PO2 324.6 mmHg (83.0-108.0); BG SAMPLE SITE RIGHT RADIAL; BG TOTAL HEMOGLOBIN 9.6 g/dL (13.5-17.5); BG VENT MODE VENT - AC
[2024-09-25] MEDS: MIDODRINE HCL 5MG TABLET PO SCH (17:06)
[2024-09-25 17:32] LABS: ANISOCYTOSIS 1+; PLATELET ESTIMATE MARKEDLY DECREASED
[2024-09-25 17:34] LABS: HYPOCHROMASIA 1+
[2024-09-26] VITALS (104 sets, daily range): BP systolic 52–97; BP diastolic 22–75; PULSE 46–81; RESP 16–29; TEMP 36.3–36.7; O2SAT 96–100
[2024-09-26 06:23] LABS: HEMATOCRIT. 25.3 % (42.0-52.0); HEMOGLOBIN. 7.9 g/dL (14.0-18.0); MEAN CORPUSCULAR HEMOGLOBIN 25.5 pg (28.0-32.0); MEAN CORPUSCULAR HGB CONC 31.3 g/dL (31.0-37.0); MEAN CORPUSCULAR VOLUME 81.4 fL (80.0-94.0); MEAN PLATELET VOLUME 8.4 fl (7.4-10.4); RED BLOOD CELL COUNT 3.11 mill/uL (4.7-6.1); RED CELL DISTRIBUTION WIDTH 18.5 % (11.6-14.6)
[2024-09-26 06:29] LABS: CARBON DIOXIDE 23 mEq/L (21-32); CHLORIDE 104 mEq/L (98-107); POTASSIUM 3.2 mEq/L (3.5-5.1); SODIUM 136 mEq/L (136-145)
[2024-09-26 06:30] LABS: CALCIUM 7.3 mg/dL (8.7-10.4)
[2024-09-26 06:35] LABS: CREATININE 0.9 mg/dL (0.6-1.3); GLUCOSE 131 mg/dL (70-105); UREA NITROGEN BLOOD 37 mg/dL (9-23)
[2024-09-26 09:05] LABS: BG BASE EXCESS -5.4 mmol/L (-2.0-3.0); BG CARBOXYHEMOGLOBIN 0.8 % (0.5-1.5); BG DEOXYHEMOGLOBIN 5.5 % (0.0-5.0); BG FRACTION INSPIRED OXYGEN 40; BG METHEMOGLOBIN 0.3 % (0.5-1.5); BG OXYGEN SATURATION 94.4 % (94.0-98.0); BG OXYHEMOGLOBIN 93.4 % (94.0-98.0); BG PCO2 38.6 mmHg (35.0-48.0); BG PH 7.333 (7.350-7.450); BG PO2 76.1 mmHg (83.0-108.0); BG SAMPLE SITE RIGHT RADIAL; BG TOTAL HEMOGLOBIN 9.7 g/dL (13.5-17.5); BG VENT MODE VENT - SIMV
[2024-09-26] MEDS: POTASSIUM CHLORIDE 20MEQ/PACKET PO NR (09:09)
[2024-09-26 10:01] LABS: DIFFERENTIAL COMMENT 1; PLATELET 27 x1000/uL (130-400)
[2024-09-26 10:04] LABS: ANISOCYTOSIS 2+; MICROCYTOSIS 1+; PLATELET ESTIMATE MARKEDLY DECREASED
[2024-09-26] MEDS: MIDODRINE HCL 5MG TABLET PO SCH (17:14)
[2024-09-26] MEDS: DEXT 5%/0.9% NACL 1,000 ML IV SCH (18:41)
[2024-09-27] VITALS (112 sets, daily range): BP systolic 42–131; BP diastolic 16–99; PULSE 66–167; RESP 16–38; TEMP 36.1–36.9; O2SAT 46–100
[2024-09-27] MEDS: DOPAMINE 400MG/250ML PREMIX 250 ML IV SCH (09:57)
[2024-09-27] MEDS: DOPAMINE 400MG/250ML PREMIX 250 ML IV ONE (09:58)
[2024-09-27 10:01] LABS: CARBON DIOXIDE 24 mEq/L (21-32); CHLORIDE 102 mEq/L (98-107); POTASSIUM 3.5 mEq/L (3.5-5.1); SODIUM 135 mEq/L (136-145)
[2024-09-27 10:03] LABS: CALCIUM 6.9 mg/dL (8.7-10.4)
[2024-09-27 10:07] LABS: CREATININE 0.8 mg/dL (0.6-1.3); GLUCOSE 232 mg/dL (70-105); HEMATOCRIT. 25.8 % (42.0-52.0); HEMOGLOBIN. 7.9 g/dL (14.0-18.0); MEAN CORPUSCULAR HEMOGLOBIN 24.3 pg (28.0-32.0); MEAN CORPUSCULAR HGB CONC 30.4 g/dL (31.0-37.0); MEAN CORPUSCULAR VOLUME 79.9 fL (80.0-94.0); MEAN PLATELET VOLUME 8.5 fl (7.4-10.4); RED BLOOD CELL COUNT 3.23 mill/uL (4.7-6.1); RED CELL DISTRIBUTION WIDTH 19.2 % (11.6-14.6); UREA NITROGEN BLOOD 32 mg/dL (9-23)
[2024-09-27] MEDS: HYDROCORTISONE SOD SUCCINATE 100 MG/2 ML VIAL IV SCH (10:08)
[2024-09-27 10:10] LABS: PHOSPHORUS 3.4 mg/dL (2.5-4.9)
[2024-09-27 10:23] LABS: PLATELET 37 x1000/uL (130-400)
[2024-09-27 10:24] LABS: DIFFERENTIAL COMMENT 1
[2024-09-27 11:15] LABS: ANISOCYTOSIS 2+; MICROCYTOSIS 1+; PLATELET ESTIMATE MARKEDLY DECREASED; TARGET CELLS 1+
[2024-09-27 11:48] LABS: CREATINE KINASE 61 IU/L (46-171)
[2024-09-27] MEDS ORDERED: HYDROCORTISONE SOD SUCCINATE 100 MG/2 ML VIAL IV SCH (14:00)
[2024-09-27] MEDS: MAGNESIUM 2 G PREMIX 50 ML IV NR (16:56)
[2024-09-28] VITALS (109 sets, daily range): BP systolic 70–128; BP diastolic 44–83; PULSE 65–88; RESP 12–30; TEMP 35–36.7; O2SAT 98–100
[2024-09-28 06:26] LABS: HEMATOCRIT. 27.4 % (42.0-52.0); HEMOGLOBIN. 8.6 g/dL (14.0-18.0); MEAN CORPUSCULAR HEMOGLOBIN 25.7 pg (28.0-32.0); MEAN CORPUSCULAR HGB CONC 31.4 g/dL (31.0-37.0); MEAN CORPUSCULAR VOLUME 81.8 fL (80.0-94.0); MEAN PLATELET VOLUME 8.2 fl (7.4-10.4); RED BLOOD CELL COUNT 3.35 mill/uL (4.7-6.1); RED CELL DISTRIBUTION WIDTH 19.3 % (11.6-14.6); WHITE BLOOD COUNT 16.2 x1000/uL (4.5-11.0)
[2024-09-28 06:40] LABS: CHLORIDE 105 mEq/L (98-107); POTASSIUM 3.8 mEq/L (3.5-5.1); SODIUM 137 mEq/L (136-145)
[2024-09-28 06:43] LABS: CALCIUM 6.7 mg/dL (8.7-10.4); CARBON DIOXIDE 22 mEq/L (21-32)
[2024-09-28 06:48] LABS: ALANINE AMINOTRANSFERASE 49 IU/L (10-49); CREATININE 0.7 mg/dL (0.6-1.3); GLUCOSE 149 mg/dL (70-105); UREA NITROGEN BLOOD 34 mg/dL (9-23)
[2024-09-28 06:49] LABS: ALBUMIN 1.4 g/dL (3.2-4.8)
[2024-09-28 06:50] LABS: ASPARTATE AMINOTRANSFERASE 77 IU/L (<34)
[2024-09-28 06:51] LABS: BILIRUBIN TOTAL 0.4 mg/dL (0.1-1.0)
[2024-09-28 07:10] LABS: PROTEIN TOTAL 4.6 g/dL (6.0-8.3)
[2024-09-28 09:44] LABS: DIFFERENTIAL COMMENT 1; PLATELET 37 x1000/uL (130-400)
[2024-09-28] MEDS: MAGNESIUM 2 G PREMIX 50 ML IV NR (10:00)
[2024-09-28 11:14] LABS: ANISOCYTOSIS 2+; MICROCYTOSIS 1+; PLATELET ESTIMATE MARKEDLY DECREASED
[2024-09-28] MEDS: MIDODRINE HCL 5MG TABLET PO SCH (14:59)
[2024-09-28] MEDS: MICAFUNGIN 100 MG in SODIUM CHLORIDE 0.9% 100 ML IV SCH (21:30)
[2024-09-28] MEDS: HYDROCORTISONE SOD SUCCINATE 100 MG/2 ML VIAL IV SCH (21:32)
[2024-09-29] VITALS (94 sets, daily range): BP systolic 66–132; BP diastolic 21–88; PULSE 52–111; RESP 12–28; TEMP 33.3–36.8; O2SAT 83–100
[2024-09-29 05:53] LABS: CHLORIDE 105 mEq/L (98-107); POTASSIUM 3.2 mEq/L (3.5-5.1); SODIUM 139 mEq/L (136-145)
[2024-09-29 05:54] LABS: CALCIUM 6.8 mg/dL (8.7-10.4); CARBON DIOXIDE 25 mEq/L (21-32); HEMATOCRIT. 24.6 % (42.0-52.0); HEMOGLOBIN. 8.1 g/dL (14.0-18.0); MEAN CORPUSCULAR HEMOGLOBIN 26.6 pg (28.0-32.0); MEAN CORPUSCULAR HGB CONC 32.9 g/dL (31.0-37.0); MEAN CORPUSCULAR VOLUME 80.8 fL (80.0-94.0); MEAN PLATELET VOLUME 8.4 fl (7.4-10.4); RED BLOOD CELL COUNT 3.05 mill/uL (4.7-6.1); RED CELL DISTRIBUTION WIDTH 19.1 % (11.6-14.6); WHITE BLOOD COUNT 18.1 x1000/uL (4.5-11.0)
[2024-09-29 05:59] LABS: CREATININE 0.6 mg/dL (0.6-1.3); GLUCOSE 160 mg/dL (70-105); UREA NITROGEN BLOOD 34 mg/dL (9-23)
[2024-09-29 06:01] LABS: PHOSPHORUS 3.7 mg/dL (2.5-4.9)
[2024-09-29 08:32] LABS: PLATELET 40 x1000/uL (130-400)
[2024-09-29 08:33] LABS: DIFFERENTIAL COMMENT 1
[2024-09-29] MEDS: POTASSIUM CHLORIDE 20MEQ TABLET SR PO NR (09:37)
[2024-09-29 09:57] LABS: BG BASE EXCESS -0.1 mmol/L (-2.0-3.0); BG CARBOXYHEMOGLOBIN 1.1 % (0.5-1.5); BG DEOXYHEMOGLOBIN 2.2 % (0.0-5.0); BG FRACTION INSPIRED OXYGEN 35; BG HCO3 ACT 23.8 mmol/L (21.0-28.0); BG METHEMOGLOBIN 0.3 % (0.5-1.5); BG OXYGEN SATURATION 97.8 % (94.0-98.0); BG OXYHEMOGLOBIN 96.4 % (94.0-98.0); BG PCO2 35.3 mmHg (35.0-48.0); BG PH 7.446 (7.350-7.450); BG PO2 101.7 mmHg (83.0-108.0); BG SAMPLE SITE RIGHT RADIAL; BG VENT MODE VENT - CPAP
[2024-09-29 14:04] LABS: ROULEAUX 2+
[2024-09-29 14:05] LABS: ANISOCYTOSIS 3+; PLATELET ESTIMATE MARKEDLY DECREASED
[2024-09-29 16:01] LABS: BG BASE EXCESS 0.4 mmol/L (-2.0-3.0); BG CARBOXYHEMOGLOBIN 1.2 % (0.5-1.5); BG DEOXYHEMOGLOBIN 7.5 % (0.0-5.0); BG FRACTION INSPIRED OXYGEN 40; BG HCO3 ACT 23.8 mmol/L (21.0-28.0); BG METHEMOGLOBIN 0.3 % (0.5-1.5); BG OXYGEN SATURATION 92.4 % (94.0-98.0); BG PCO2 33.9 mmHg (35.0-48.0); BG PH 7.465 (7.350-7.450); BG PO2 62.9 mmHg (83.0-108.0); BG SAMPLE SITE RIGHT RADIAL; BG TOTAL HEMOGLOBIN 9.3 g/dL (13.5-17.5); BG VENT MODE MASK - SIMPLE
[2024-09-30] VITALS (107 sets, daily range): BP systolic 45–143; BP diastolic 15–115; PULSE 66–120; RESP 15–40; O2SAT 80–100
[2024-09-30] MEDS: EPINEPHRINE 10 MG in SODIUM CHLORIDE 0.9% 240 ML IV PRN (10:02)
[2024-09-30 10:47] LABS: BG BASE EXCESS -6.7 mmol/L (-2.0-3.0); BG DEOXYHEMOGLOBIN 8.7 % (0.0-5.0); BG FRACTION INSPIRED OXYGEN 100; BG HCO3 ACT 19.8 mmol/L (21.0-28.0); BG METHEMOGLOBIN 0.3 % (0.5-1.5); BG OXYGEN SATURATION 91.2 % (94.0-98.0); BG PCO2 44.6 mmHg (35.0-48.0); BG PH 7.266 (7.350-7.450); BG PO2 66.1 mmHg (83.0-108.0); BG SAMPLE SITE RIGHT RADIAL; BG VENT MODE VENT - AC
[2024-09-30] MEDS: LIDOCAINE HCL 1% 20ML VIAL INFIL NR (12:30)
[2024-09-30] MEDS ORDERED: NALOXONE HCL 0.4MG/ML VIAL IV PRN (13:00)
[2024-09-30] MEDS: MEROPENEM 1GM/50ML DUPLEX 50 ML IV SCH (15:05)
[2024-09-30] MEDS: MORPHINE SULFATE 2 MG/ML INJ (NOT FOR IM USE) IV NR (15:05)
[2024-09-30] MEDS: DEXT 5%/0.9% NACL 1,000 ML IV SCH (15:05)
[2024-09-30 15:14] LABS: CHLORIDE 103 mEq/L (98-107); POTASSIUM 4.4 mEq/L (3.5-5.1); SODIUM 134 mEq/L (136-145)
[2024-09-30 15:15] LABS: CALCIUM 6.3 mg/dL (8.7-10.4); CARBON DIOXIDE 23 mEq/L (21-32)
[2024-09-30 15:17] LABS: HEMATOCRIT 26.1 % (42.0-52.0); HEMOGLOBIN 7.8 g/dL (14.0-18.0); MEAN CORPUSCULAR HEMOGLOBIN 25.3 pg (28.0-32.0); MEAN CORPUSCULAR HGB CONC 29.8 g/dL (31.0-37.0); RED BLOOD CELL COUNT 3.06 mill/uL (4.7-6.1); WHITE BLOOD COUNT 23.9 x1000/uL (4.5-11.0)
[2024-09-30 15:20] LABS: CREATININE 0.8 mg/dL (0.6-1.3); GLUCOSE 244 mg/dL (70-105); UREA NITROGEN BLOOD 41 mg/dL (9-23)
[2024-09-30 15:22] LABS: PHOSPHORUS 4.2 mg/dL (2.5-4.9)
[2024-09-30 15:32] LABS: PLATELET 49 x1000/uL (130-400)
[2024-10-01] VITALS (113 sets, daily range): BP systolic 30–133; BP diastolic 13–84; PULSE 66–121; RESP 19–36; TEMP 35.9–37; O2SAT 25–100
[2024-10-01 01:30] LABS: BODY FLUID RBC 1225 /cu mm (0-2000); BODY FLUID WBC 338 /cu mm (0-200)
[2024-10-01 01:31] LABS: BODY FLUID MONOCYTES 2 %
[2024-10-01] MEDS ORDERED: EPINEPHRINE 10 MG in SODIUM CHLORIDE 0.9% 240 ML IV PRN (02:15)
[2024-10-01 03:34] LABS: HEMATOCRIT. 27.2 % (42.0-52.0); HEMOGLOBIN. 8.4 g/dL (14.0-18.0); MEAN CORPUSCULAR HEMOGLOBIN 25.1 pg (28.0-32.0); MEAN CORPUSCULAR HGB CONC 30.7 g/dL (31.0-37.0); MEAN CORPUSCULAR VOLUME 81.5 fL (80.0-94.0); MEAN PLATELET VOLUME 7.8 fl (7.4-10.4); RED BLOOD CELL COUNT 3.34 mill/uL (4.7-6.1); RED CELL DISTRIBUTION WIDTH 19.9 % (11.6-14.6); WHITE BLOOD COUNT 19.9 x1000/uL (4.5-11.0)
[2024-10-01 04:09] LABS: CHLORIDE 105 mEq/L (98-107); SODIUM 135 mEq/L (136-145)
[2024-10-01 04:10] LABS: CALCIUM 7.1 mg/dL (8.7-10.4); CARBON DIOXIDE 24 mEq/L (21-32)
[2024-10-01 04:15] LABS: CREATININE 0.8 mg/dL (0.6-1.3); GLUCOSE 123 mg/dL (70-105); UREA NITROGEN BLOOD 45 mg/dL (9-23)
[2024-10-01 04:18] LABS: DIFFERENTIAL COMMENT 1
[2024-10-01 04:20] LABS: PLATELET 43 x1000/uL (130-400)
[2024-10-01 07:30] LABS: ANISOCYTOSIS 3+; HYPOCHROMASIA 1+
[2024-10-01 07:33] LABS: PLATELET ESTIMATE DECREASED
[2024-10-01 09:19] LABS: ALBUMIN 1.6 g/dL (3.2-4.8)
[2024-10-01 09:28] LABS: BG BASE EXCESS -7.9 mmol/L (-2.0-3.0); BG CARBOXYHEMOGLOBIN 1.8 % (0.5-1.5); BG DEOXYHEMOGLOBIN 1.1 % (0.0-5.0); BG FRACTION INSPIRED OXYGEN 100; BG HCO3 ACT 17.9 mmol/L (21.0-28.0); BG METHEMOGLOBIN 0.3 % (0.5-1.5); BG OXYGEN SATURATION 98.9 % (94.0-98.0); BG OXYHEMOGLOBIN 96.8 % (94.0-98.0); BG PCO2 38.1 mmHg (35.0-48.0); BG PH 7.291 (7.350-7.450); BG PO2 136.6 mmHg (83.0-108.0); BG SAMPLE SITE RIGHT RADIAL; BG TOTAL HEMOGLOBIN 7.5 g/dL (13.5-17.5); BG VENT MODE VENT - AC
[2024-10-01] MEDS: LIDOCAINE HCL 1% 10 MG/ML 10ML VIAL INJ NR (11:00)
[2024-10-01] MEDS: ALBUMIN HUMAN 25GM/100ML (25%) IV SCH (11:20)
[2024-10-01] MEDS: EPINEPHRINE 20 MG in SODIUM CHLORIDE 0.9% 480 ML IV PRN (13:21)
[2024-10-01 15:56] LABS: BG BASE EXCESS -8.3 mmol/L (-2.0-3.0); BG CARBOXYHEMOGLOBIN 1.2 % (0.5-1.5); BG DEOXYHEMOGLOBIN 1.7 % (0.0-5.0); BG FRACTION INSPIRED OXYGEN 100; BG HCO3 ACT 19.1 mmol/L (21.0-28.0); BG METHEMOGLOBIN 0.3 % (0.5-1.5); BG OXYGEN SATURATION 98.3 % (94.0-98.0); BG OXYHEMOGLOBIN 96.8 % (94.0-98.0); BG PCO2 49.8 mmHg (35.0-48.0); BG PH 7.201 (7.350-7.450); BG PO2 118.7 mmHg (83.0-108.0); BG SAMPLE SITE ALINE; BG TOTAL HEMOGLOBIN 6.7 g/dL (13.5-17.5); BG VENT MODE VENT - AC
[2024-10-01] MEDS: SODIUM BICARBONATE 8.4% 50MEQ/50ML SYR IV NR (17:22)
[2024-10-02] VITALS (100 sets, daily range): BP systolic 31–136; BP diastolic 11–84; PULSE 61–106; RESP 16–35; TEMP 34.1694–36.3; O2SAT 64–100
[2024-10-02 06:15] LABS: MEAN CORPUSCULAR HEMOGLOBIN 25.1 pg (28.0-32.0); MEAN CORPUSCULAR HGB CONC 30.4 g/dL (31.0-37.0); MEAN CORPUSCULAR VOLUME 82.4 fL (80.0-94.0); MEAN PLATELET VOLUME 8.2 fl (7.4-10.4); RED BLOOD CELL COUNT 2.67 mill/uL (4.7-6.1); RED CELL DISTRIBUTION WIDTH 19.8 % (11.6-14.6)
[2024-10-02 06:49] LABS: CALCIUM 6.7 mg/dL (8.7-10.4); CHLORIDE 106 mEq/L (98-107); POTASSIUM 4.5 mEq/L (3.5-5.1); SODIUM 137 mEq/L (136-145)
[2024-10-02 06:50] LABS: CARBON DIOXIDE 20 mEq/L (21-32)
[2024-10-02 06:55] LABS: CREATININE 0.8 mg/dL (0.6-1.3); GLUCOSE 132 mg/dL (70-105); UREA NITROGEN BLOOD 45 mg/dL (9-23)
[2024-10-02 06:57] LABS: DIFFERENTIAL COMMENT 1
[2024-10-02 07:00] LABS: HEMOGLOBIN. 6.7 g/dL (14.0-18.0)
[2024-10-02 07:04] LABS: LACTIC ACID 2.7 mmol/L (0.4-2.0)
[2024-10-02 09:28] LABS: BG BASE EXCESS -8.3 mmol/L (-2.0-3.0); BG CARBOXYHEMOGLOBIN 1.5 % (0.5-1.5); BG DEOXYHEMOGLOBIN 2.7 % (0.0-5.0); BG FRACTION INSPIRED OXYGEN 80; BG HCO3 ACT 18.3 mmol/L (21.0-28.0); BG METHEMOGLOBIN 0.3 % (0.5-1.5); BG OXYGEN SATURATION 97.3 % (94.0-98.0); BG OXYHEMOGLOBIN 95.5 % (94.0-98.0); BG PCO2 42.4 mmHg (35.0-48.0); BG PH 7.252 (7.350-7.450); BG PO2 101.4 mmHg (83.0-108.0); BG SAMPLE SITE ALINE; BG TOTAL HEMOGLOBIN 7.1 g/dL (13.5-17.5); BG VENT MODE VENT - AC
[2024-10-02 13:54] LABS: BG BASE EXCESS -8.7 mmol/L (-2.0-3.0); BG CARBOXYHEMOGLOBIN 1.6 % (0.5-1.5); BG DEOXYHEMOGLOBIN 5.9 % (0.0-5.0); BG FRACTION INSPIRED OXYGEN 60; BG HCO3 ACT 17.6 mmol/L (21.0-28.0); BG METHEMOGLOBIN 0.4 % (0.5-1.5); BG OXYHEMOGLOBIN 92.1 % (94.0-98.0); BG PCO2 40.1 mmHg (35.0-48.0); BG PO2 79.2 mmHg (83.0-108.0); BG SAMPLE SITE ALINE; BG TOTAL HEMOGLOBIN 6.1 g/dL (13.5-17.5); BG VENT MODE VENT - AC
[2024-10-02] MEDS: AZITHROMYCIN 500 MG TABLET GT SCH (14:30)
[2024-10-02] MEDS: CALCIUM GLUCONATE 100MG/ML 10ML VIAL IV NR (16:47)
[2024-10-02] MEDS: DOPAMINE 800MG PREMIX (DOUBLE) 250 ML IV PRN (21:40)
[2024-10-02 22:35] LABS: HEMOGLOBIN 8.3 g/dL (14.0-18.0); MEAN CORPUSCULAR HEMOGLOBIN 25.9 pg (28.0-32.0); MEAN CORPUSCULAR HGB CONC 30.6 g/dL (31.0-37.0); MEAN CORPUSCULAR VOLUME 84.6 fL (80.0-94.0); RED BLOOD CELL COUNT 3.19 mill/uL (4.7-6.1); RED CELL DISTRIBUTION WIDTH 18.5 % (11.6-14.6)
[2024-10-02 22:50] LABS: PLATELET 33 x1000/uL (130-400)
[2024-10-03] VITALS (75 sets, daily range): BP systolic 31–64; BP diastolic 10–41; PULSE 0–107; RESP 0–38; TEMP 34–36.8; O2SAT 56–90
[2024-10-03] MEDS: MEROPENEM 1G/100ML 100 ML IV SCH (05:30)
[2024-10-03 06:39] LABS: CALCIUM 6.2 mg/dL (8.7-10.4); CARBON DIOXIDE 19 mEq/L (21-32); CHLORIDE 107 mEq/L (98-107); POTASSIUM 4.8 mEq/L (3.5-5.1); SODIUM 137 mEq/L (136-145)
[2024-10-03 06:45] LABS: CREATININE 0.9 mg/dL (0.6-1.3); GLUCOSE 149 mg/dL (70-105); UREA NITROGEN BLOOD 49 mg/dL (9-23)
[2024-10-03 07:17] LABS: HEMATOCRIT. 28.2 % (42.0-52.0); HEMOGLOBIN. 8.8 g/dL (14.0-18.0); MEAN CORPUSCULAR HEMOGLOBIN 26.2 pg (28.0-32.0); MEAN CORPUSCULAR VOLUME 84.5 fL (80.0-94.0); MEAN PLATELET VOLUME 8.9 fl (7.4-10.4); RED BLOOD CELL COUNT 3.34 mill/uL (4.7-6.1); RED CELL DISTRIBUTION WIDTH 18.2 % (11.6-14.6); WHITE BLOOD COUNT 34.1 x1000/uL (4.5-11.0)
[2024-10-03 08:04] LABS: DIFFERENTIAL COMMENT 1; PLATELET 31 x1000/uL (130-400)
[2024-10-03] MEDS ORDERED: SODIUM BICARBONATE 150 MEQ in DEXTROSE 5% WATER 1,000 ML IV SCH (08:15)
[2024-10-03] MEDS: SODIUM BICARBONATE 8.4% 50MEQ/50ML SYR IV NR (08:45)
[2024-10-03] MEDS: SODIUM BICARBONATE 150MEQ in DEXTROSE 5% WATER 1000ML IV SCH (08:47)
[2024-10-03] MEDS: ATROPINE SULFATE 1MG/10ML SYR IV PRN (10:21)
[2024-10-03] MEDS ORDERED: MORPHINE SULFATE 250 MG in DEXT 5% WATER 240 ML IV PRN (12:00)
[2024-10-03] MEDS: MORPHINE SULFATE 250 MG in DEXT 5% WATER 250 ML IV PRN (12:21)
[2024-10-03 13:22] LABS: NUCLEATED RED BLOOD CELLS 1 /100 WBC
[2024-10-03 13:23] LABS: ANISOCYTOSIS 2+
[2024-10-03 13:24] LABS: HYPOCHROMASIA 1+
[2024-10-03 13:25] LABS: PLATELET ESTIMATE MARKEDLY DECREASED
[2024-10-03 17:44] LABS: ANISOCYTOSIS 2+; NUCLEATED RED BLOOD CELLS 1 /100 WBC; PLATELET ESTIMATE MARKEDLY DECREASED
[2024-10-03 17:45] LABS: HYPOCHROMASIA 1+; PLATELET 29 x1000/uL (130-400)
[2024-10-03] MEDS ORDERED: VANCOMYCIN 750MG/150ML (BAXTER) IV SCH (18:00)
== END 2024-10-03 16:00 | DRG 720 ==
LOC: ER 13:30 → EDBEDREQ 19:53 → EDBEDREQTM 19:53 → MICUSO 22:50
PROVIDERS: ADMIT Internal Medicine; ATTEND Internal Medicine
PROC: 5A12012 Performance of Cardiac Output, Single, Manual (ICD-10-PCS; principal; 2024-09-18)
PROC: 5A1955Z Respiratory Ventilation, Greater than 96 Consecutive Hours (ICD-10-PCS; 2024-09-18)
PROC: 0BH17EZ Insertion of Endotracheal Airway into Trachea, Via Natural or Artificial Opening (ICD-10-PCS; 2024-09-18)
PROC: 30233N1 Transfusion of Nonautologous Red Blood Cells into Peripheral Vein, Percutaneous Approach (ICD-10-PCS; 2024-09-18)
PROC: 05HN33Z Insertion of Infusion Device into Left Internal Jugular Vein, Percutaneous Approach (ICD-10-PCS; 2024-09-18)
PROC: B544ZZA Ultrasonography of Left Jugular Veins, Guidance (ICD-10-PCS; 2024-09-18)
PROC: 0W9930Z Drainage of Right Pleural Cavity with Drainage Device, Percutaneous Approach (ICD-10-PCS; 2024-09-19)
PROC: 02HV33Z Insertion of Infusion Device into Superior Vena Cava, Percutaneous Approach (ICD-10-PCS; 2024-09-24)
PROC: B548ZZA Ultrasonography of Superior Vena Cava, Guidance (ICD-10-PCS; 2024-09-24)
PROC: 5A09357 Assistance with Respiratory Ventilation, Less than 24 Consecutive Hours, Continuous Positive Airway Pressure (ICD-10-PCS; 2024-09-24)
PROC: 0BH17EZ Insertion of Endotracheal Airway into Trachea, Via Natural or Artificial Opening (ICD-10-PCS; 2024-09-25)
PROC: 5A1955Z Respiratory Ventilation, Greater than 96 Consecutive Hours (ICD-10-PCS; 2024-09-25)
PROC: 0W9B30Z Drainage of Left Pleural Cavity with Drainage Device, Percutaneous Approach (ICD-10-PCS; 2024-09-30)
PROC: 0BH17EZ Insertion of Endotracheal Airway into Trachea, Via Natural or Artificial Opening (ICD-10-PCS; 2024-09-30)
PROC: 04HY32Z Insertion of Monitoring Device into Lower Artery, Percutaneous Approach (ICD-10-PCS; 2024-10-01)
DX: A41.9 Sepsis, unspecified organism (principal); I46.9 Cardiac arrest, cause unspecified; J96.01 Acute respiratory failure with hypoxia; N17.0 Acute kidney failure with tubular necrosis; R65.21 Severe sepsis with septic shock; E87.20 Acidosis, unspecified; D69.6 Thrombocytopenia, unspecified; J18.9 Pneumonia, unspecified organism; E46 Unspecified protein-calorie malnutrition; L89.159 Pressure ulcer of sacral region, unspecified stage; G92.8 Other toxic encephalopathy; N39.0 Urinary tract infection, site not specified; J93.9 Pneumothorax, unspecified; Z68.1 Body mass index [BMI] 19.9 or less, adult; D64.9 Anemia, unspecified; C80.1 Malignant (primary) neoplasm, unspecified; E03.8 Other specified hypothyroidism; E83.52 Hypercalcemia; H57.04 Mydriasis; E87.6 Hypokalemia; R62.7 Adult failure to thrive; T85.628A Displacement of other specified internal prosthetic devices, implants and grafts, initial encounter; E88.09 Other disorders of plasma-protein metabolism, not elsewhere classified; Y83.8 Other surgical procedures as the cause of abnormal reaction of the patient, or of later complication, without mention of misadventure at the time of the procedure; J93.82 Other air leak; Y92.238 Other place in hospital as the place of occurrence of the external cause; F17.210 Nicotine dependence, cigarettes, uncomplicated; I51.81 Takotsubo syndrome; J45.909 Unspecified asthma, uncomplicated; J90 Pleural effusion, not elsewhere classified; R73.9 Hyperglycemia, unspecified; S51.811A Laceration without foreign body of right forearm, initial encounter; X58.XXXA Exposure to other specified factors, initial encounter; K59.00 Constipation, unspecified; L73.2 Hidradenitis suppurativa; Y93.89 Activity, other specified; Y92.89 Other specified places as the place of occurrence of the external cause; Y99.8 Other external cause status
CPT/HCPCS: 31500; 36415; 36556; 36573; 36600; 71045; 74018; 80048; 80053; 80076; 80202; 80305; 80320; 81003; 82040; 82375; 82533; 82550; 82607; 82728; 82746; 82805; 82962; 83036; 83540; 83550; 83605; 83615; 83735; 83986; 84100; 84134; 84145; 84439; 84443; 84478; 84480; 84484; 85014; 85018; 85025; 85027; 85044; 85379; 86850; 86900; 86920; 87070; 87102; 87116; 87804; 92950; 93005; 93306; 93970; 94002; 94003; 94070; 94660; 94664; 99291; A4606; A6261; C1725; J0461; J0610; J1265; J1650; J1720; J1815; J2003; J2185; J2248; J2270; J2371; J2470; J2543; J2704; J2765; J3010; J3370; J3430; J3475; J3480; J3490; J7030; J7040; J7042; J7050; J7060; J7070; P9016; P9047; G0480